=== PATIENT | male | born 1935 | race Caucasian/White ===

== ENCOUNTER 2018-01-13 03:10 | Inpatient (IN) | END 2018-01-15 16:22 | disposition home or self-care (01) | DRG 178 ==

== ENCOUNTER 2018-07-27 16:48 | Inpatient (IN) | payer OTHER ==
[~2018-07-27] VITALS: Ht 165.1 cm; Wt 59.5 kg
[~2018-07-27 16:48] MED LIST: AZIT500T5 PO; CEFU250T64 PO; ETHA400T8 PO; GUAI120S26 PO; METO-448 PO; RIFA300C3 PO
[2018-07-27 17:00] VITALS: Ht 165.1 cm; Wt 59.5 kg
--- NOTE | 2018-07-27 19:55 | ERD ---
ER Documentation Chief Complaint Chief Complaint Complains of a cough with SOB x 3 days HPI 82-year-old male with history of hypertension, MAC infection and ongoing, chronic cough and shortness of breath referred to the ED for treatment of culture positive Mycobacterium abscesses pulmonary infection. Patient denies chest pain or palpitation. No abdominal pain, nausea or vomiting. No hemoptysis or sputum production. Denies fevers, chills, anorexia, night sweats or weight loss. ROS All systems reviewed and are negative except as per history of present illness. Medications Home Meds Discontinued Reported Medications Rifampin* (Rifampin*) 300 Mg Capsule, 300 MG PO, #2 CAP 01/13/18 Azithromycin* (Azithromycin*) 500 Mg Tablet, 500 MG PO, #1 TAB 01/13/18 Ethambutol Hcl (Ethambutol Hcl) 400 Mg Tablet, 400 MG PO, #3 TAB 01/13/18 Discontinued Scripts Yasrcyfbfha-A-Eouqzxfqck Hb* (Guaifenesin* DM Syrup) 120 Ml Syrup, 10 ML PO Q6H, #1 BOTTLE Prov:SPEARS,HIWOT [employer] 01/15/18 Metoprolol Tartrate* (Lopressor*) 25 Mg Tab, 25 MG PO BID, #60 TAB Prov:SPEARS,HI[employer] 01/15/18 Cefuroxime Axetil* (Cefuroxime Axetil*) 250 Mg Tablet, 500 MG PO BID for 6 Days, #12 TAB Prov:SPEARS,[employer] 01/15/18 Allergies Allergies: Coded Allergies: No Known Allergy (Unverified , 07/27/18) PMhx/Soc Reviewed in chart. As per HPI. History of Surgery: Yes (Lung Sx (40 years ago)) Anesthesia Reaction: No Hx Neurological Disorder: No Hx Respiratory Disorders: Yes (Lung sx (40 years ago)) Hx Cardiac Disorders: Yes (HTN) Hx Psychiatric Problems: No Hx Miscellaneous Medical Probl: No Hx Alcohol Use: No Hx Substance Use: No Hx Tobacco Use: No Smoking Status: Never smoker FmHx No stroke or cancer. Physical Exam Vitals Vital Signs Date Temp Pulse Resp B/P (MAP) Pulse Ox O2 O2 Flow FiO2 Time Delivery Rate 07/27/18 74 23 135/91 99 Room Air 21:25 (106) 07/27/18 98.2 86 20 154/67 97 17:00 (96) Physical Exam Const: Alert, cachectic in no acute distress. Head: Atraumatic Eyes: Normal Conjunctiva ENT: Normal External Ears, Nose and Mouth. Neck: Full range of motion. No meningismus. No JVD. Resp: Left lung field is clear. Right lung field coarse rhonchi. No wh eezing. Cardio: Regular rate and rhythm, no murmurs Abd: Soft, non tender, non distended. No masses or abnormal pulsations. No rebound or guarding. Normal bowel sounds Skin: No petechiae or rashes Back: No midline or flank tenderness Ext: No cyanosis, or edema Neur: Awake and alert. No focal deficit Psych: Normal Mood and Affect Result Diagram: 07/29/1852307/29/18523 Results 24 hrs Laboratory Tests Test 07/27/18 20:11 White Blood Count 7.4 10^3/ul Red Blood Count 4.88 10^6/ul Hemoglobin 12.7 g/dl Hematocrit 39.0 % Mean Corpuscular Volume 79.9 fl Mean Corpuscular Hemoglobin 26.0 pg Mean Corpuscular Hemoglobin Concent 32.6 g/dl Red Cell Distribution Width 13.7 % Platelet Count 233 10^3/UL Mean Platelet Volume 9.8 fl Immature Granulocytes % 0.400 % Neutrophils % 77.0 % Lymphocytes % 10.1 % Monocytes % 10.0 % Eosinophils % 2.0 % Basophils % 0.5 % Nucleated Red Blood Cells % 0.0 /100WBC Immature Granulocytes # 0.030 10^3/ul Neutrophils # 5.7 10^3/ul Lymphocytes # 0.8 10^3/ul Monocytes # 0.7 10^3/ul Eosinophils # 0.2 10^3/ul Basophils # 0.0 10^3/ul Nucleated Red Blood Cells # 0.0 10^3/ul Sodium Level 131 mmol/L Potassium Level 5.0 mmol/L Chloride Level 92 mmol/L Carbon Dioxide Level 31 mmol/L Anion Gap 8 Blood Urea Nitrogen 13 mg/dl Creatinine 0.80 mg/dl Est Glomerular Filtrat Rate mL/min mL/min Glucose Level 99 mg/dl Calcium Level 9.2 mg/dl Total Bilirubin 0.5 mg/dl Direct Bilirubin 0.00 mg/dl Indirect Bilirubin 0.5 mg/dl Aspartate Amino Transf (AST/SGOT) 21 IU/L Alanine Aminotransferase (ALT/SGPT) 12 IU/L Alkaline Phosphatase 75 IU/L Total Protein 7.8 g/dl Albumin 4.0 g/dl Globulin 3.80 g/dl Albumin/Globulin Ratio 1.05 Procedures/MDM DOCUMENTS REVIEWED: ED nurse, prior ED, prior records IMAGING: PROCEDURE: XR Chest. CLINICAL INDICATION: Cough TECHNIQUE: Portable AP view of the chest was obtained. COMPARISON: CT CHEST 01/13/2018 FINDINGS: Chronic changes in the right lung with volume loss, scarring, and calcification. Loculated pneumothorax seen on prior CT is difficult to appreciate on this radiograph. No significant abnormality left lung. Rightward shift of the mediastinal structures. IMPRESSION: Chronic-appearing changes of the right lung with volume loss, scarring, and calcification. Loculated pneumothorax seen on prior CT is not appreciated on this radiograph. RPTAT: HRGF Physician Virgil Date Time Electronically viewed and signed by Physician Virgil on 07/27/2018 21:13 RF/ MEDICAL DECISION MAKIN-year-old male with history of hypertension, MAC infection and ongoing, chronic cough and shortness of breath referred to the ED for treatment of culture positive Mycobacterium abscesses pulmonary infection. CBC reveals mild leukocytosis but no anemia. Chemistry significant for mild hyponatremia but no other electrolyte abnormalities or hyperglycemia. Chest x- ray findings as above. Antibiotics and further cultures deferred to the admitting physician. Admit to med/surg for infectious disease consult, further evaluation and management. CALLS/CONSULTS: Dr. Lewis, referring infectious disease. Patient with highly resistant Mycobacterium abscesses infection recommends admission for infectious disease consult and antibiotics including inhaled amikacin PATIENT CARE TRANSITIONED: Time: 21:58, Dr. Lee. Counseled patient and family regarding diagnosis, diagnostic results and plan for admission. 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
[2018-07-27] MEDS ORDERED: ACETAMINOPHEN 325 MG TAB PO PRN (22:30)
[2018-07-27] MEDS ORDERED: ONDANSETRON 4 MG INJ IV PRN (22:30)
[2018-07-27 23:45] VITALS: BP 149/79; PULSE 67; RESP 16
[2018-07-28] MEDS ORDERED: HYDROCODONE/APAP (5/325) TAB PO PRN ×2 (01:00)
[2018-07-28] MEDS ORDERED: ONDANSETRON 4 MG INJ IV PRN (01:00)
[2018-07-28] MEDS ORDERED: ALBUTEROL/IPRATROPIUM (NEB) 3 ML AMP HHN PRN (01:00)
[2018-07-28] MEDS ORDERED: TIGECYCLINE 100 MG in SOD CHLORIDE 0.9% 100 ML IVPB ONE (01:00)
[2018-07-28] MEDS ORDERED: ACETAMINOPHEN 325 MG TAB PO PRN (01:00)
[2018-07-28] MEDS ORDERED: NACL 0.9% 3 ML SYG IV SCH (01:00)
--- NOTE | 2018-07-28 01:53 | HP ---
Date/Time of Note Date/Time of Note DATE: 07/28/18 TIME: 01:48 Assessment/Plan VTE Prophylaxis Pharmacological prophylaxis: heparin Lines/Catheters IV Catheter Type (from Nrs): Saline Lock Assessment/Plan Assessment/Plan 82-year-old male with a history of hypertension, lung surgery, pulmonary Mycobacterium infection presents with shortness of breath and cough most likely related to his chronic Mycobacterium infection PLAN Patient has been following with Dr. Lewis, infectious disease specialist. Per ER physician, Dr. Lewis recommended that patient be on tigecycline and amikacin inhaler. Unfortunately we do not have a medication inhaler here in the pharmacy. Will place and ID consult here. In the meantime he will be placed on tigecycline. Supplemental oxygen and as needed cough meds Result Diagram: 07/27/18201007/27/182010 Results 24hrs Laboratory Tests Test 07/27/18 20:11 White Blood Count 7.4 # Red Blood Count 4.88 Hemoglobin 12.7 L Hematocrit 39.0 L Mean Corpuscular Volume 79.9 L Mean Corpuscular Hemoglobin 26.0 L Mean Corpuscular Hemoglobin Concent 32.6 Red Cell Distribution Width 13.7 Platelet Count 233 # Mean Platelet Volume 9.8 Immature Granulocytes % 0.400 Neutrophils % 77.0 Lymphocytes % 10.1 L Monocytes % 10.0 Eosinophils % 2.0 Basophils % 0.5 Nucleated Red Blood Cells % 0.0 Immature Granulocytes # 0.030 Neutrophils # 5.7 Lymphocytes # 0.8 Monocytes # 0.7 Eosinophils # 0.2 Basophils # 0.0 Nucleated Red Blood Cells # 0.0 Sodium Level 131 L Potassium Level 5.0 Chloride Level 92 L Carbon Dioxide Level 31 Anion Gap 8 Blood Urea Nitrogen 13 Creatinine 0.80 Est Glomerular Filtrat Rate mL/min Glucose Level 99 Calcium Level 9.2 Total Bilirubin 0.5 Direct Bilirubin 0.00 Indirect Bilirubin 0.5 Aspartate Amino Transf (AST/SGOT) 21 Alanine Aminotransferase (ALT/SGPT) 12 L Alkaline Phosphatase 75 Total Protein 7.8 Albumin 4.0 Globulin 3.80 H Albumin/Globulin Ratio 1.05 HPI/ROS Admit Date/Time Admit Date/Time Jul 27, 2018 at 22:21 Hx of Present Illness This is an 82-year-old male with a history of hypertension, lung surgery, pulmonary Mycobacterium infection presents the ER complaining of shortness of breath and cough. Patient has been admitted here in December by myself related to his pulmonary infection. He has been following with infectious disease specialist Dr. Lewis in [facility]. Per ER physician, Dr. Lewis and instructed the patient to go to [facility], but instead he came to [facility]. Chest x-ray shows chronic-appearing changes of the right lung with volume loss, scarring, and calcification. The ER physician was able to talk to Dr. Lewis who recommended that patient be treated with tigecycline and amikacin inhaler. Fortunately pharmacy here does not have inhaler form of the medication. PMH/Family/Social Past Medical History Past Surgical History Past Surgical Hx: other (see hpi) Family History Significant Family History: no pertinent family hx Social History Alcohol Use: other Smoking Status: Unknown if ever smoked Drug Use: other Exam Constitutional: other (no acute distress) Eyes: PERRL ENMT: nl external ears & nose Neck: supple Respiratory: normal air movement Cardiovascular: nl pulses Gastrointestinal: soft Extremities: normal pulses Medications Current Medications Ondansetron HCl (Zofran Inj) 4 mg BRIDGE ORDER PRN IV NAUSEA/VOMITING; Start 07/27/18 at 22:30; Stop 07/28/18 at 22:29 Acetaminophen (Tylenol Tab) 650 mg ER BRIDGE PRN PO .MILD PAIN 1-3 OR TEMP; Start 07/27/18 at 22:30; Stop 07/28/18 at 22:29 IV Flush (NS 3 ml) 3 ml PER PROTOCOL IV ; Start 07/28/18 at 01:00 Ondansetron HCl (Zofran Inj) 4 mg Q6H PRN IV NAUSEA/VOMITING; Start 07/28/18 at 01:00 Acetaminophen (Tylenol Tab) 650 mg Q6H PRN PO .PAIN 1-3 OR TEMP; Start 07/28/18 at 01:00 Acetaminophen/ Hydrocodone Bitart ([place] (5/325)) 1 tab Q6H PRN PO .MOD PAIN 4- 6; Start 07/28/18 at 01:00 Acetaminophen/ Hydrocodone Bitart ([place] (5/325)) 2 tab Q6H PRN PO .SEVERE PAIN 7-10; Start 07/28/18 at 01:00 Albuterol/ Ipratropium (Duoneb) 3 ml Q2H RESP THERAPY PRN HHN SHORTNESS OF BREATH; Start 07/28/18 at 01:00 Tigecycline 100 mg/Sodium Chloride 100 ml @ 100 mls/hr ONCE ONCE IVPB Last administered on 07/28/18at 01:01; Admin Dose 100 MLS/HR; Start 07/28/18 at 01:00; Stop 07/28/18 at 01:59 Coded Allergies: No Known Allergy (Unverified , 07/27/18) Past Surgical History Past Surgical Hx: other Family History Significant Family History: no pertinent family hx Social History Smoking Status: Never smoker Exam/Review of Systems Vital Signs Vitals Vital Signs Date Temp Pulse Resp B/P (MAP) Pulse Ox O2 O2 Flow FiO2 Time Delivery Rate 07/27/18 97.6 67 16 149/79 95 23:45 (102) 07/27/18 Room Air 23:24 DAMI LOUIS MD Jul 28, 2018 01:53
[2018-07-28 02:14] VITALS: BP 160/79; PULSE 70; RESP 16
[2018-07-28 08:24] VITALS: BP 139/75; PULSE 64; RESP 20
[2018-07-28] MEDS ORDERED: AMIKACIN IV PER PHARMACY XX SCH (13:00)
[2018-07-28] MEDS ORDERED: AMIKACIN 500 MG in SOD CHLORIDE 0.9% 100 ML IVPB SCH (14:00)
[2018-07-28 14:58] VITALS: BP 135/70; PULSE 69; RESP 20
--- NOTE | 2018-07-28 16:34 | PN ---
Date/Time of Note Date/Time of Note DATE: 07/28/18 TIME: 16:32 Assessment/Plan VTE [place] [facility] [place]: 2 [place] [facility] [place] Yes Pharmacological prophylaxis: other Pharm contraindication: low risk/ambulating Lines/Catheters [facility]from [facility] Saline Lock Assessment/Plan Assessment/Plan 1. Pulmonary MAC infection, follow up with Dr. Gilliland for treatment 2. Hypertension, controlled Result Diagram: 07/28/18 0607/28/18 0606 Results 24hrs Laboratory Tests Test 07/27/18 20:11 07/28/18 06:06 White Blood Count 7.4 # 7.6 Red Blood Count 4.88 4.94 Hemoglobin 12.7 L 12.7 L Hematocrit 39.0 L 39.1 L Mean Corpuscular Volume 79.9 L 79.1 L Mean Corpuscular Hemoglobin 26.0 L 25.7 L Mean Corpuscular Hemoglobin Concent 32.6 32.5 Red Cell Distribution Width 13.7 13.7 Platelet Count 233 # 220 Mean Platelet Volume 9.8 9.4 Immature Granulocytes % 0.400 0.400 Neutrophils % 77.0 80.3 H Lymphocytes % 10.1 L 8.4 L Monocytes % 10.0 8.4 Eosinophils % 2.0 2.1 Basophils % 0.5 0.4 Nucleated Red Blood Cells % 0.0 0.0 Immature Granulocytes # 0.030 0.030 Neutrophils # 5.7 6.1 Lymphocytes # 0.8 0.6 L Monocytes # 0.7 0.6 Eosinophils # 0.2 0.2 Basophils # 0.0 0.0 Nucleated Red Blood Cells # 0.0 0.0 Sodium Level 131 L 135 Potassium Level 5.0 4.7 Chloride Level 92 L 97 Carbon Dioxide Level 31 29 Anion Gap 8 9 Blood Urea Nitrogen 13 14 Creatinine 0.80 0.65 Est Glomerular Filtrat Rate mL/min Glucose Level 99 84 Calcium Level 9.2 9.1 Total Bilirubin 0.5 0.5 Direct Bilirubin 0.00 0.00 Indirect Bilirubin 0.5 0.5 Aspartate Amino Transf (AST/SGOT) 21 21 Alanine Aminotransferase (ALT/SGPT) 12 L 20 Alkaline Phosphatase 75 79 Total Protein 7.8 7.1 Albumin 4.0 3.7 Globulin 3.80 H 3.40 H Albumin/Globulin Ratio 1.05 1.08 Subjective 24 Hr Interval Summary Free Text/Dictation some cough, no fever Exam/Review of Systems Exam Vitals Vital Signs Date Temp Pulse Resp B/P (MAP) Pulse Ox O2 O2 Flow FiO2 Time Delivery Rate 07/28/18 98.1 69 20 135/70 96 Room Air 14:58 (91) 07/28/18 21 02:40 Intake and Output 07/27/18 07/27/18 07/28/18 1515:00 23:00 07:00 IntakeIntake Total 100 ml BalanceBalance 100 ml Constitutional: alert, oriented, well developed Head: normocephalic, atraumatic Eyes: nl conjunctiva, EOMI, nl lids, nl sclera, PERRL ENMT: nl external ears & nose, nl lips & teeth, nl nasal mucosa & septum Neck: supple, non-tender Respiratory: clear to auscultation, normal air movement; No congested cough, No crackles/rales, No diminished breath sounds, No intercostal retraction, No labored breathing, No respirations, No tactile fremitus, No wheezing, No other Cardiovascular: regular rate and rhythm, nl pulses; No bruits, No diastolic murmur, No edema, No gallop, No irregular rhythm, No jugular venous distention (JVD), No murmurs/extra sounds, No rub, No systolic murmur, No S3, No S4, No other Gastrointestinal: soft, nl liver, spleen, non-tender Musculoskeletal: nl extremities to inspection Extremities: normal pulses; No calf tenderness, No cyanosis, No clubbing, No edema, No pitting pedal edema, No palpable cord, No tenderness, No other Neurological: AGRICULTURAL CHEMIST II-XII intact, nl mental status, nl speech, nl strength Results Results 24hrs Laboratory Tests Test 07/27/18 20:11 07/28/18 06:06 White Blood Count 7.4 # 7.6 Red Blood Count 4.88 4.94 Hemoglobin 12.7 L 12.7 L Hematocrit 39.0 L 39.1 L Mean Corpuscular Volume 79.9 L 79.1 L Mean Corpuscular Hemoglobin 26.0 L 25.7 L Mean Corpuscular Hemoglobin Concent 32.6 32.5 Red Cell Distribution Width 13.7 13.7 Platelet Count 233 # 220 Mean Platelet Volume 9.8 9.4 Immature Granulocytes % 0.400 0.400 Neutrophils % 77.0 80.3 H Lymphocytes % 10.1 L 8.4 L Monocytes % 10.0 8.4 Eosinophils % 2.0 2.1 Basophils % 0.5 0.4 Nucleated Red Blood Cells % 0.0 0.0 Immature Granulocytes # 0.030 0.030 Neutrophils # 5.7 6.1 Lymphocytes # 0.8 0.6 L Monocytes # 0.7 0.6 Eosinophils # 0.2 0.2 Basophils # 0.0 0.0 Nucleated Red Blood Cells # 0.0 0.0 Sodium Level 131 L 135 Potassium Level 5.0 4.7 Chloride Level 92 L 97 Carbon Dioxide Level 31 29 Anion Gap 8 9 Blood Urea Nitrogen 13 14 Creatinine 0.80 0.65 Est Glomerular Filtrat Rate mL/min Glucose Level 99 84 Calcium Level 9.2 9.1 Total Bilirubin 0.5 0.5 Direct Bilirubin 0.00 0.00 Indirect Bilirubin 0.5 0.5 Aspartate Amino Transf (AST/SGOT) 21 21 Alanine Aminotransferase (ALT/SGPT) 12 L 20 Alkaline Phosphatase 75 79 Total Protein 7.8 7.1 Albumin 4.0 3.7 Globulin 3.80 H 3.40 H Albumin/Globulin Ratio 1.05 1.08 Medications Medication Current Medications IV Flush (NS 3 ml) 3 ml PER PROTOCOL IV ; Start 07/28/18 at 01:00 Ondansetron HCl (Zofran Inj) 4 mg Q6H PRN IV NAUSEA/VOMITING; Start 07/28/18 at 01:00 Acetaminophen (Tylenol Tab) 650 mg Q6H PRN PO .PAIN 1-3 OR TEMP; Start 07/28/18 at 01:00 Acetaminophen/ Hydrocodone Bitart ([place] (5/325)) 1 tab Q6H PRN PO .MOD PAIN 4- 6; Start 07/28/18 at 01:00 Acetaminophen/ Hydrocodone Bitart ([place] (5/325)) 2 tab Q6H PRN PO .SEVERE PAIN 7-10; Start 07/28/18 at 01:00 Albuterol/ Ipratropium (Duoneb) 3 ml Q2H RESP THERAPY PRN HHN SHORTNESS OF AGUSTIN TH Last administered on 07/28/18at 02:40; Admin Dose 3 ML; Start 07/28/18 at 01:00 Influenza Virus Vaccine Quadrival (Fluzone) 0.5 ml ONCE ONCE IM* ; Start 07/30/18 at 10:00; Stop 07/30/18 at 10:01 Amikacin Sulfate (Amikacin Iv Per Pharmacy) AMIKACIN PER PHARMACY NOTE XX ; Start 07/28/18 at 13:00 Azithromycin (Zithromax) 500 mg DAILY PO ; Start 07/29/18 at 09:00 Rifampin (Rifampin) 600 mg DAILY PO ; Start 07/29/18 at 09:00 Ethambutol HCl (Myambutol) 1,200 mg DAILY PO ; Start 07/29/18 at 09:00 Amikacin Sulfate 500 mg/Sodium Chloride 102 ml @ 102 mls/hr Q24H IVPB Last administered on 07/28/18at 14:53; Admin Dose 102 MLS/HR; Start 07/28/18 at 14:00 ARIANA SMITH MD Jul 28, 2018 16:34
[2018-07-28 20:00] VITALS: BP 144/71; PULSE 63; RESP 18
[2018-07-29 02:00] VITALS: BP 112/65; PULSE 70; RESP 17
--- NOTE | 2018-07-29 08:16 | CONS ---
Assessment/Plan Assessment/Plan Hospital Course (Demo Recall) 1) Hx of MAC he was admitted to this hospital in december of 2017 and his AFB cultures at that time were negative He had a repeat CT of chest this time c/w with the one in december and there is no significant change it was probably reasonable to have his MAC treatment stopped given that it was over a year and he had at least 4 months of negative cx 2)M.abscessus in sputum cx this can be a pathogen or a non pathogen no change in CT from before suggests it is a non pathogen in order to appropriately treat this more than one positive cx will be necessary repeat AFB cx (done) d/c antibiotics and follow up with his [place] ID doctor if and when the second AFB cx also has M.abscessus I will contact the Dr. Canales later today after his office has opened his AFB sputum cx in june proves he does not have TB and there are no acute changes to CT chest to suggest a new infection, so d/c isolation 3)pseudomonas in sputum this too may be an infection or not check procalcitonin but since there is no new infiltrates on CT chest, hold off on treatment at this time 4) mold in sputum once again this could be a traveler or cause infection or cause an allergic reaction to I will order beta d glucan, aspergillus galactomannan, aspergillus serology doubt pt has invasive disease from this and if he has a symptom from it more likely it would be ABPA for which steroids are usually used Consultation Date/Type/Reason Admit Date/Time Jul 27, 2018 at 22:21 Date of Consultation: Jul 29, 2018 Type of Consult ID Date/Time of Note DATE: 07/29/18 TIME: 07:59 Hx of Present Illness pt gives a rambling history using a application manager I also spoke with the ID clinic in [place] that has been treating the pt for MAC they state he was on azithro/EMB/RIF in march and did not have them changed but pt and note from ID office in [place] indicates that his meds were stopped in march of 2018 He denies F, C, NS he only gets SOB when he walks far He has a cough that he states is better but the noted from his ID office visit indicate his cough was worse They got cx which grew M.abscessus and pseudomonas and a mold no N, V, D for pt Past Medical History MAC lung infection Home Meds Discontinued Reported Medications Rifampin* (Rifampin*) 300 Mg Capsule, 300 MG PO, #2 CAP 01/13/18 Azithromycin* (Azithromycin*) 500 Mg Tablet, 500 MG PO, #1 TAB 01/13/18 Ethambutol Hcl (Ethambutol Hcl) 400 Mg Tablet, 400 MG PO, #3 TAB 01/13/18 Discontinued Scripts Rbbvaifwntz-U-Woxczmgyki Hb* (Guaifenesin* DM Syrup) 120 Ml Syrup, 10 ML PO Q6H, #1 BOTTLE Prov:SPEARS,HIWOT V. [employer] 01/15/18 Metoprolol Tartrate* (Lopressor*) 25 Mg Tab, 25 MG PO BID, #60 TAB Prov:SPEARS,HIWOT [employer]. [employer] RO[employer] 01/15/18 Cefuroxime Axetil* (Cefuroxime Axetil*) 250 Mg Tablet, 500 MG PO BID for 6 Days, #12 TAB Prov:SPEARS,HIWOT [employer]. [employer] RO[employer] 01/15/18 Medications Current Medications IV Flush (NS 3 ml) 3 ml PER PROTOCOL IV ; Start 07/28/18 at 01:00 Ondansetron HCl (Zofran Inj) 4 mg Q6H PRN IV NAUSEA/VOMITING; Start 07/28/18 at 01:00 Acetaminophen (Tylenol Tab) 650 mg Q6H PRN PO .PAIN 1-3 OR TEMP; Start 07/28/18 at 01:00 Acetaminophen/ Hydrocodone Bitart ([place] (5/325)) 1 tab Q6H PRN PO .MOD PAIN 4- 6; Start 07/28/18 at 01:00 Acetaminophen/ Hydrocodone Bitart ([place] (5/325)) 2 tab Q6H PRN PO .SEVERE PAIN 7-10; Start 07/28/18 at 01:00 Albuterol/ Ipratropium (Duoneb) 3 ml Q2H RESP THERAPY PRN HHN SHORTNESS OF BREATH Last administered on 07/28/18at 02:40; Admin Dose 3 ML; Start 07/28/18 at 01:00 Influenza Virus Vaccine Quadrival (Fluzone) 0.5 ml ONCE ONCE IM* ; Start 07/30/18 at 10:00; Stop 07/30/18 at 10:01 Amikacin Sulfate (Amikacin Iv Per Pharmacy) AMIKACIN PER PHARMACY NOTE XX ; Start 07/28/18 at 13:00 Azithromycin (Zithromax) 500 mg DAILY PO ; Start 07/29/18 at 09:00 Rifampin (Rifampin) 600 mg DAILY PO ; Start 07/29/18 at 09:00 Ethambutol HCl (Myambutol) 1,200 mg DAILY PO ; Start 07/29/18 at 09:00 Amikacin Sulfate 500 mg/Sodium Chloride 102 ml @ 102 mls/hr Q24H IVPB Last administered on 07/28/18at 14:53; Admin Dose 102 MLS/HR; Start 07/28/18 at 14:00 Allergies: Coded Allergies: No Known Allergy (Unverified , 07/27/18) Past Surgical History lung surgery Past Surgical Hx: other Social History Smoking Status: Never smoker Exam/Review of Systems Exam Vitals Vital Signs Date Temp Pulse Resp B/P (MAP) Pulse Ox O2 O2 Flow FiO2 Time Delivery Rate 07/29/18 98.3 70 17 112/65 94 02:00 (81) 07/28/18 Room Air 14:58 07/28/18 21 02:40 Intake and Output 07/28/18 07/28/18 07/29/18 1515:00 23:00 07:00 IntakeIntake Total 820 ml 702 ml BalanceBalance 820 ml 702 ml Constitutional: alert Eyes: nl sclera Respiratory: other (decreased BS on R with some crackles) Cardiovascular: regular rate and rhythm Gastrointestinal: soft, non-tender Results Result Diagram: 07/29/18 0524 07/29/18 0524 Results 24hrs Laboratory Tests Test 07/29/18 05:24 White Blood Count 8.2 Red Blood Count 5.15 Hemoglobin 13.5 L Hematocrit 40.1 L Mean Corpuscular Volume 77.9 L Mean Corpuscular Hemoglobin 26.2 L Mean Corpuscular Hemoglobin Concent 33.7 Red Cell Distribution Width 13.9 Platelet Count 249 Mean Platelet Volume 9.5 Immature Granulocytes % 0.400 Neutrophils % 76.6 Lymphocytes % 10.3 L Monocytes % 9.6 Eosinophils % 2.6 Basophils % 0.5 Nucleated Red Blood Cells % 0.0 Immature Granulocytes # 0.030 Neutrophils # 6.3 Lymphocytes # 0.8 Monocytes # 0.8 Eosinophils # 0.2 Basophils # 0.0 Nucleated Red Blood Cells # 0.0 Sodium Level 134 L Potassium Level 4.4 Chloride Level 98 Carbon Dioxide Level 24 Anion Gap 12 Blood Urea Nitrogen 20 Creatinine 0.67 Est Glomerular Filtrat Rate mL/min Glucose Level 83 Calcium Level 9.2 Phosphorus Level 4.2 Magnesium Level 2.1 Medications Medication Current Medications IV Flush (NS 3 ml) 3 ml PER PROTOCOL IV ; Start 07/28/18 at 01:00 Ondansetron HCl (Zofran Inj) 4 mg Q6H PRN IV NAUSEA/VOMITING; Start 07/28/18 at 01:00 Acetaminophen (Tylenol Tab) 650 mg Q6H PRN PO .PAIN 1-3 OR TEMP; Start 07/28/18 at 01:00 Acetaminophen/ Hydrocodone Bitart ([place] (5/325)) 1 tab Q6H PRN PO .MOD PAIN 4- 6; Start 07/28/18 at 01:00 Acetaminophen/ Hydrocodone Bitart ([place] (5/325)) 2 tab Q6H PRN PO .SEVERE PAIN 7-10; Start 07/28/18 at 01:00 Albuterol/ Ipratropium (Duoneb) 3 ml Q2H RESP THERAPY PRN HHN SHORTNESS OF BREATH Last administered on 07/28/18at 02:40; Admin Dose 3 ML; Start 07/28/18 at 01:00 Influenza Virus Vaccine Quadrival (Fluzone) 0.5 ml ONCE ONCE IM* ; Start 07/30/18 at 10:00; Stop 07/30/18 at 10:01 Amikacin Sulfate (Amikacin Iv Per Pharmacy) AMIKACIN PER PHARMACY NOTE XX ; Start 07/28/18 at 13:00 Azithromycin (Zithromax) 500 mg DAILY PO ; Start 07/29/18 at 09:00 Rifampin (Rifampin) 600 mg DAILY PO ; Start 07/29/18 at 09:00 Ethambutol HCl (Myambutol) 1,200 mg DAILY PO ; Start 07/29/18 at 09:00 Amikacin Sulfate 500 mg/Sodium Chloride 102 ml @ 102 mls/hr Q24H IVPB Last administered on 07/28/18at 14:53; Admin Dose 102 MLS/HR; Start 07/28/18 at 14:00 MEAGHAN MONROE MD Jul 29, 2018 08:11
[2018-07-29 08:23] VITALS: BP 140/75; PULSE 60; RESP 16
[2018-07-29] MEDS ORDERED: ETHAMBUTOL 400 MG TAB PO SCH (09:00)
[2018-07-29] MEDS ORDERED: RIFAMPIN 300 MG CAP PO SCH (09:00)
[2018-07-29] MEDS ORDERED: AZITHROMYCIN 250 MG TAB PO SCH (09:00)
--- NOTE | 2018-07-29 12:48 | PN ---
Date/Time of Note Date/Time of Note DATE: 07/29/18 TIME: 12:44 Assessment/Plan VTE Prophylaxis Risk score (from Ns)>0 risk: 2 SCD applied (from Ns): Yes Pharmacological prophylaxis: other Pharm contraindication: low risk/ambulating Lines/Catheters [facility] [place] [facility] Urinary Cath still in place: No Assessment/Plan Assessment/Plan 1. 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 Gilliland 2. Hypertension, controlled 3. Follow up with tests Dr. Gilliland ordered Result Diagram: 07/29/1852307/29/18523 Results 24hrs Laboratory Tests Test 07/29/18 05:24 White Blood Count 8.2 Red Blood Count 5.15 Hemoglobin 13.5 L Hematocrit 40.1 L Mean Corpuscular Volume 77.9 L Mean Corpuscular Hemoglobin 26.2 L Mean Corpuscular Hemoglobin Concent 33.7 Red Cell Distribution Width 13.9 Platelet Count 249 Mean Platelet Volume 9.5 Immature Granulocytes % 0.400 Neutrophils % 76.6 Lymphocytes % 10.3 L Monocytes % 9.6 Eosinophils % 2.6 Basophils % 0.5 Nucleated Red Blood Cells % 0.0 Immature Granulocytes # 0.030 Neutrophils # 6.3 Lymphocytes # 0.8 Monocytes # 0.8 Eosinophils # 0.2 Basophils # 0.0 Nucleated Red Blood Cells # 0.0 Sodium Level 134 L Potassium Level 4.4 Chloride Level 98 Carbon Dioxide Level 24 Anion Gap 12 Blood Urea Nitrogen 20 Creatinine 0.67 Est Glomerular Filtrat Rate mL/min Glucose Level 83 Calcium Level 9.2 Phosphorus Level 4.2 Magnesium Level 2.1 Subjective 24 Hr Interval Summary Free Text/Dictation cough, no fever Exam/Review of Systems Exam Vitals Vital Signs Date Temp Pulse Resp B/P (MAP) Pulse Ox O2 O2 Flow FiO2 Time Delivery Rate 07/29/18 97.7 60 16 140/75 96 08:23 (96) 07/28/18 Room Air 14:58 07/28/18 21 02:40 Intake and Output 07/28/18 07/28/18 07/29/18 1515:00 23:00 07:00 IntakeIntake Total 820 ml 702 ml BalanceBalance 820 ml 702 ml Constitutional: alert, oriented, well developed Psych: no complaints, nl mood/affect Head: normocephalic, atraumatic Eyes: nl conjunctiva, EOMI, nl lids ENMT: nl external ears & nose, nl lips & teeth, nl nasal mucosa & septum Neck: supple, non-tender Respiratory: clear to auscultation, normal air movement; No congested cough, No crackles/rales, No diminished breath sounds, No intercostal retraction, No labored breathing, No respirations, No tactile fremitus, No wheezing, No other Cardiovascular: regular rate and rhythm, nl pulses; No bruits, No diastolic murmur, No edema, No gallop, No irregular rhythm, No jugular venous distention (JVD), No murmurs/extra sounds, No rub, No systolic murmur, No S3, No S4, No other Gastrointestinal: soft, nl liver, spleen, non-tender Musculoskeletal: nl extremities to inspection Extremities: normal pulses; No calf tenderness, No cyanosis, No clubbing, No edema, No pitting pedal edema, No palpable cord, No tenderness, No other Neurological: OFFAL SEPARATOR II-XII intact, nl mental status, nl speech, nl strength Results Results 24hrs Laboratory Tests Test 07/29/18 05:24 White Blood Count 8.2 Red Blood Count 5.15 Hemoglobin 13.5 L Hematocrit 40.1 L Mean Corpuscular Volume 77.9 L Mean Corpuscular Hemoglobin 26.2 L Mean Corpuscular Hemoglobin Concent 33.7 Red Cell Distribution Width 13.9 Platelet Count 249 Mean Platelet Volume 9.5 Immature Granulocytes % 0.400 Neutrophils % 76.6 Lymphocytes % 10.3 L Monocytes % 9.6 Eosinophils % 2.6 Basophils % 0.5 Nucleated Red Blood Cells % 0.0 Immature Granulocytes # 0.030 Neutrophils # 6.3 Lymphocytes # 0.8 Monocytes # 0.8 Eosinophils # 0.2 Basophils # 0.0 Nucleated Red Blood Cells # 0.0 Sodium Level 134 L Potassium Level 4.4 Chloride Level 98 Carbon Dioxide Level 24 Anion Gap 12 Blood Urea Nitrogen 20 Creatinine 0.67 Est Glomerular Filtrat Rate mL/min Glucose Level 83 Calcium Level 9.2 Phosphorus Level 4.2 Magnesium Level 2.1 Medications Medication Current Medications IV Flush (NS 3 ml) 3 ml PER PROTOCOL IV ; Start 07/28/18 at 01:00 Ondansetron HCl (Zofran Inj) 4 mg Q6H PRN IV NAUSEA/VOMITING; Start 07/28/18 at 01:00 Acetaminophen (Tylenol Tab) 650 mg Q6H PRN PO .PAIN 1-3 OR TEMP; Start 07/28/18 at 01:00 Acetaminophen/ Hydrocodone Bitart ([place] (5/325)) 1 tab Q6H PRN PO .MOD PAIN 4- 6; Start 07/28/18 at 01:00 Acetaminophen/ Hydrocodone Bitart ([place] (5/325)) 2 tab Q6H PRN PO .SEVERE PAIN 7-10; Start 07/28/18 at 01:00 Albuterol/ Ipratropium (Duoneb) 3 ml Q2H RESP THERAPY PRN HHN SHORTNESS OF BREATH Last administered on 07/28/18at 02:40; Admin Dose 3 ML; Start 07/28/18 at 01:00 Influenza Virus Vaccine Quadrival (Fluzone) 0.5 ml ONCE ONCE IM* ; Start 07/30/18 at 10:00; Stop 07/30/18 at 10:01 ARIANA SMITH MD Jul 29, 2018 12:48
[2018-07-29 14:29] VITALS: BP 150/75; PULSE 69; RESP 16
[2018-07-29 20:00] VITALS: BP 159/85; PULSE 66; RESP 18
[2018-07-30 02:00] VITALS: BP 109/6; PULSE 74; RESP 18
[2018-07-30 07:30] VITALS: BP 119/67; PULSE 66; RESP 17
--- NOTE | 2018-07-30 08:07 | CONS ---
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 Canales later today after his office has opened his AFB sputum cx in june proves he does not have TB and there are no acute changes to CT chest to suggest a new infection, so d/c isolation 07/30 - spoke to Dr. Canales yesterday pt also had M.abscessus positive cx in [place] in september of 2017 and his office in may 2018 was also positive (in between the AFB cx was negative) pt has no radiographic evidence for new infection since december of 2017 and no constitutional symptoms other than persistent cough Dr. Canales agrees that at this time, treatment for M.abscessus is not necessary ok for pt to be discharged off all antibiotics lab results from [place] and from Dr. Canales were faxed to my office and will be incl uded in pt's hospital chart explained to pt via multi line claims adjuster that he does not need antibiotics at this time but he is at increased risk for lung infection and he should see a doctor if he develops new symptoms such as F, C, change in color of phlegm or much worse cough 3)pseudomonas in sputum this too may be an infection or not check procalcitonin but since there is no new infiltrates on CT chest, hold off on treatment at this time 07/30 - sputum cx here is NGTD for bacteria 4) mold in sputum once again this could be a traveler or cause infection or cause an allergic reaction to I will order beta d glucan, aspergillus galactomannan, aspergillus serology doubt pt has invasive disease from this and if he has a symptom from it more likely it would be ABPA for which steroids are usually used 07/30 - sputum cx here only has c.alb which is likely a contaminant blood for beta d glucan, aspergillus Ab and galactomannan were ordered Consultation Date/Type/Reason Admit Date/Time Jul 27, 2018 at 22:21 Initial Consult Date 07/29/18 Type of Consult ID Date/Time of Note DATE: 07/30/18 TIME: 07:59 24 HR Interval Summary Free Text/Dictation pt states he still has cough but overall better than 2 months ago no F, C, NS he has had this cough for 2 years now Exam/Review of Systems Exam Vitals Vital Signs Date Temp Pulse Resp B/P (MAP) Pulse Ox O2 O2 Flow FiO2 Time Delivery Rate 07/30/18 18 97 02:00 07/30/18 98.3 74 02:00 07/28/18 Room Air 14:58 07/28/18 21 02:40 Intake and Output 07/29/18 07/29/18 07/30/18 1515:00 23:00 07:00 IntakeIntake Total 400 ml 800 ml BalanceBalance 400 ml 800 ml Results Result Diagram: 07/29/1824 07/29/18523 Medications Medication Current Medications IV Flush (NS 3 ml) 3 ml PER PROTOCOL IV ; Start 07/28/18 at 01:00 Ondansetron HCl (Zofran Inj) 4 mg Q6H PRN IV NAUSEA/VOMITING; Start 07/28/18 at 01:00 Acetaminophen (Tylenol Tab) 650 mg Q6H PRN PO .PAIN 1-3 OR TEMP; Start 07/28/18 at 01:00 Acetaminophen/ Hydrocodone Bitart ([place] (5/325)) 1 tab Q6H PRN PO .MOD PAIN 4- 6 Last administered on 07/30/18at 06:28; Admin Dose 1 TAB; Start 07/28/18 at 01:00 Acetaminophen/ Hydrocodone Bitart ([place] (5/325)) 2 tab Q6H PRN PO .SEVERE PAIN 7-10; Start 07/28/18 at 01:00 Albuterol/ Ipratropium (Duoneb) 3 ml Q2H RESP THERAPY PRN HHN SHORTNESS OF BREATH Last administered on 07/28/18at 02:40; Admin Dose 3 ML; Start 07/28/18 at 01:00 Influenza Virus Vaccine Quadrival (Fluzone) 0.5 ml ONCE ONCE IM* ; Start 07/30/18 at 10:00; Stop 07/30/18 at 10:01 MEAGHAN MONROE MD Jul 30, 2018 08:07
[2018-07-30] MEDS ORDERED: INFLUENZA VIRUS VACCINE 0.5 ML (DISPENSING) IM* ONE (10:00)
[2018-07-30 14:25] VITALS: BP 122/67; PULSE 68; RESP 16
--- NOTE | 2018-07-30 15:16 | DS ---
Date/Time of Note Date/Time of Note DATE: 07/30/18 TIME: 15:03 Discharge Summary Admission/Discharge Info Admit Date/Time Jul 27, 2018 at 22:21 Discharge Date/Time Discharge Diagnosis 1. H/o pulmonary MAC, treated, no further treatment needed at this time per Dr. Gilliland Patient Condition: Stable Hospital Course This is an 82-year-old male with a history of hypertension, lung surgery, pulmonary Mycobacterium infection presents the ER complaining of shortness of breath and cough. He has been following with infectious disease specialist Dr. Lewis in [facility]. Dr. Lewis who recommended that patient be treated with tigecycline and amikacin inhaler. Case is reviewed and discussed with Dr. Lewis by ID Dr. Gilliland. Per Dr. Gilliland, he was admitted to this hospital in december of 2017 and his AFB cultures at that time were negative. He had a repeat CT of chest this time c/w with the one in december and there is no significant change. it was probably reasonable to have his MAC treatment stopped given that it was over a year and he had at least 4 months of negative cx. No recent positive MAC sputum cx, continue off MAC treatment at this time. Repeat AFB cx are pending that Dr. Gilliland will follow asa outpatient. Patient had M.abscessus positive cx in [place] in september of 2017 and his office in may 2018 was also positive (in between the AFB cx was negative). Patient has no radiographic evidence for new infection since december of 2017 and no constitutional symptoms other than persistent cough. Dr. Canales agrees that at this time, treatment for M.abscessus is not necessary. He is instructed if he develops new symptoms such as F, C, change in color of phlegm or much worse cough he needs to see a doctor. Home Meds Discontinued Reported Medications Rifampin* (Rifampin*) 300 Mg Capsule, 300 MG PO, #2 CAP 01/13/18 Azithromycin* (Azithromycin*) 500 Mg Tablet, 500 MG PO, #1 TAB 01/13/18 Ethambutol Hcl (Ethambutol Hcl) 400 Mg Tablet, 400 MG PO, #3 TAB 01/13/18 Discontinued Scripts [id number] Hb* (Guaifenesin* DM Syrup) 120 Ml Syrup, 10 ML PO Q6H, #1 BOTTLE Prov:[employer] 01/15/18 Metoprolol Tartrate* (Lopressor*) 25 Mg Tab, 25 MG PO BID, #60 TAB Prov:[employer]ER 01/15/18 Cefuroxime Axetil* (Cefuroxime Axetil*) 250 Mg Tablet, 500 MG PO BID for 6 Days, #12 TAB Prov:[employer]ER 01/15/18 Follow-up Plan PCP and Dr. Lewis in one week Dr. Gilliland in one week Primary Care Provider Not On Staff Doctor ARIANA SMITH MD Jul 30, 2018 15:16
== END 2018-07-30 17:00 | disposition home or self-care (01) | DRG 204 ==
LOC: FTE 16:48 → PP2 22:21
PROVIDERS: ADMIT Internal Medicine; ATTEND Internal Medicine
PROC: 3E0234Z Introduction of Serum, Toxoid and Vaccine into Muscle, Percutaneous Approach (ICD-10-PCS; principal; 2018-07-30)
DX: R05 Cough (principal); R06.02 Shortness of breath; I10 Essential (primary) hypertension; Z23 Encounter for immunization
CPT/HCPCS: 71045; 71250; 80048; 80053; 83735; 84100; 84145; 85025; 86606; 87070; 87081; 87116; 90686; 94664; J0278; J3243

== ENCOUNTER 2019-01-31 11:10 | Emergency (ER) | payer BC, OTHER ==
[~2019-01-31] VITALS: Wt 61.6 kg
[~2019-01-31 11:10] MED LIST changes: +ALBU8.5H8 INH; -AZIT500T5 PO; -CEFU250T64 PO; -ETHA400T8 PO; -GUAI120S26 PO; -METO-448 PO; -RIFA300C3 PO
[2019-01-31 11:12] VITALS: Wt 61.6 kg
[2019-01-31] MEDS ORDERED: ALBUTEROL 0.5% (NEB) 2.5 MG/0.5 ML AMP INH STA (12:11)
[2019-01-31 16:37] VITALS: BP 113/71; PULSE 73; RESP 18
== END 2019-01-31 16:39 | disposition home or self-care (01) ==
LOC: E/R 11:10
DX: R04.2 Hemoptysis (principal); I10 Essential (primary) hypertension; J98.01 Acute bronchospasm
CPT/HCPCS: 71045; 71250; 80048; 85025; 94644